=== PATIENT | male | born 1970 | race Caucasian/White ===

== ENCOUNTER 2024-03-04 08:51 | Outpatient (CLI) | payer MEDICARE, MEDICAID ==
[2024-03-04 09:29] VITALS: PULSE 72; RESP 16; O2SAT 98
== END 2024-03-04 23:59 | disposition home or self-care (01) ==
LOC: RT 08:51
PROVIDERS: ATTEND Student in an Organized Health Care Education/Training Program
DX: J44.9 Chronic obstructive pulmonary disease, unspecified (principal); R94.2 Abnormal results of pulmonary function studies
CPT/HCPCS: 71046; 94010; 94760

== ENCOUNTER 2025-04-15 11:33 | Outpatient (CLI) | payer MEDICARE, MEDICAID ==
--- NOTE | 2025-04-15 13:18 | RADIOLOGY REPORT ---
CT CT CHEST LOW DOSE INDICATION: NICOTINE DEPENDENCE, CIGARETTES EXAM DATE: 04/15/2025 11:44 AM COMPARISON: DI CHEST,TWO VIEWS on DOS: 03/04/24 RADIATION DOSE: CTDIvol: mGy, DLP: mGy*cm PROCEDURE: Helical CT images were obtained of the chest Sagittal and coronal reconstructions are pr ovided. ADDITIONAL IMAGES / REFORMATS: None All CT scans at this medical facility are performed using dose modulation techniques as appropriate t o a performed exam including the following: Automated exposure control was utilized; adjustment of th e MA and/or KV according to patient size; and use of iterative reconstruction technique. FINDINGS: Bones: Scattered degenerative changes are noted. Bilateral shoulder arthroplasties are noted. Visualized Abdomen: Normal. Chest Wall: Normal. Soft tissues: Normal. Mediastinum: Normal. Heart: Coronary artery calcifications are noted. Vessels: Normal. Lymph Nodes: Normal. Pleura: Normal. Airways: Normal. Lung: Severe lung emphysema. 5 mm LLL pulmonary nodule. Other: None IMPRESSION: Severe lung emphysema. 5 mm LLL pulmonary nodule vs atelectasis. Lung Rads 2, continue 12 month LDCT.
== END 2025-04-15 23:59 | disposition home or self-care (01) ==
LOC: RAD 11:33
PROVIDERS: ATTEND Internal Medicine
DX: J43.9 Emphysema, unspecified (principal); F17.210 Nicotine dependence, cigarettes, uncomplicated; M47.814 Spondylosis without myelopathy or radiculopathy, thoracic region; I25.10 Atherosclerotic heart disease of native coronary artery without angina pectoris
CPT/HCPCS: 71271